=== PATIENT | female | born 1945 | race Caucasian/White ===

== ENCOUNTER 2019-01-06 08:21 | Inpatient (IN) | payer OTHER, MEDICARE, SELFPAY ==
[2018-12-31 12:37] VITALS: BMI 23.8
[2019-01-06] VITALS (13 sets, daily range): BP systolic 113–159; BP diastolic 58–102; PULSE 73–123; RESP 14–18; TEMP 36.3–36.9; O2SAT 95–100; BMI 23.8
--- NOTE | 2019-01-06 | DI.RAD.S_ITS ---
PROCEDURE: XR LUMBAR SPINE 2-3V INDICATIONS: L2-3, L3-4, L4-5, L5-S1 ANT/POST instru fusion w/bone graft TECHNIQUE: 3 views of the lumbar spine were acquired. COMPARISON: None. FINDINGS: Spot fluoroscopic intraoperative views demonstrate posterior spinal fixation with paraspinal rods pedicle screws from L2-S1. There is expected intraoperative alignment Interbody cage grafts also noted. Dictated by: José Ruelas M.D. on 01/06/2019 at 18:21 Approved by: José Ruelas M.D. on 01/06/2019 at 18:23
[2019-01-06] MEDS: LACTATED RINGERS 1,000 ML 42 ML IV ×3 (09:45→16:26)
--- NOTE | 2019-01-06 09:57 | PM.PREOP ---
Pre-operative Note Interval Note History & Physical reviewed/Exam performed by Physician: Yes Changes to H&P: No
[2019-01-06] MEDS: CEFAZOLIN 2 GM/100 ML FROZ.PIGGY IV ×3 (10:42→22:22)
--- NOTE | 2019-01-06 11:32 | SUR.OPER ---
Right lateral on padded OR table. Head on pillow, gel axillary roll, pillow to support left arm. Legs flexed, pillows between legs, gel pad under down leg and ankle. Multiple passes of 3 inch cloth tape across shoulder, hip, upper and lower legs to secure patient on OR table.
--- NOTE | 2019-01-06 11:32 | SUR.OPER ---
Prone on spine table, head in foam head support, padded chest and pelvic supports, gel pad at knees, lower legs supported by pillows; nipples, genitalia and toes free of pressure, arms secured on foam padded arm boards at <90 degrees abduction. Tape over blanket at thigh secured to table.
[2019-01-06] MEDS: VANCOMYCIN 1,000 MG VIAL 1000 MG TOP (11:46)
[2019-01-06] MEDS: SODIUM CHLORIDE 0.9% 1,000 ML, GENTAMICIN 80 MG IRR (11:47)
[2019-01-06] MEDS: BUPIVACAINE 0.5% (PF) 4 ML, MORPHINE-PF 4 MG, BUTORPHANOL 1 MG, fentaNYL 100 MCG INJ (11:48)
[2019-01-06] MEDS: THROMBIN (RECOMBINANT) 5,000 UNIT VIAL 5000 UNIT TOP (11:51)
--- NOTE | 2019-01-06 18:37 | PM.OP.1 ---
Operative Date/Time/Diagnoses Date of procedure: 01/06/19 Time of procedure: 18:37 Pre-op diagnosis: Lumbar stenosis with radiculopathy Lumbar scoliosis History of lumbar laminectomy Post-op diagnosis: same Procedure & Clinicians Procedure: L2-3, L3-4, L4-5 anterior fusion with cages L2-3, L3-4, L4-5 posterior fusion L5-S1 TLIF (post/post interbody fusion) with cage L2 through S1 screws Iliac crest bone graft L3-4 laminectomy L4-5, L5-S1 revision laminotomies Use of microscope Placement of epidural catheter Same procedure as scheduled: Yes Indications: [age] year old female with intractable pain from stenosis. They had failed conservative management and requested operative intervention. Risks and benefits of surgery were discussed and appropriate consents were obtained. Surgeon: Nakul Earl Extractions Technologist: Ariana Felix Anesthesia Type: General Operative Notes Findings: Dural tear, repaired primarily Closure Type: primary Specimen(s): none sent Prosthetic devices, grafts, tissues, transplants, or devices: NuVasive MAS reline screws NuVasive XLIF cages Globus Rise cage Applied: catheter Estimated Blood Loss (mL): 100 Blood products transfused: none Procedure in detail: Patient was brought to the operating room and intubated on the table. Time-out was performed. They were then rolled over to the lateral decubitus position with the [id number]. The table was bent and they were taped down in the correct position. X-rays were taken to confirm a true AP and lateral. Preoperative antibiotics were given. The left flank was prepped and draped in standard sterile fashion. Using fluoroscopy, a 3 cm incision was made above the iliac crest. We bluntly dissected down with Metzenbaum scissors and split the 3 abdominal muscle layers. We dissected out the retroperitoneal space and using finger guidance, brought our 1st dilator down to the psoas muscle. Using neuromonitoring and fluoroscopy, we placed it through the psoas onto the L4-5 disc space in an anterior position and gradually pulled the dilator posteriorly along the disc space. We placed our guidewire and measured our depth for the retractor. We then dilated with the next 2 dilators and then placed our retractor over the dilators. Position was confirmed with fluoroscopy and the retractor was locked down to the bar. We opened up the retractor and checked with neuro monitoring. We then placed the thierno and again checked with neuro monitoring. The retractor was opened further and the ALL retractor was placed. An annulotomy was performed. We then performed a complete diskectomy with ring curette, pituitary, box osteotome. A De Jesus was advanced across the disc space under fluoroscopy to release the lateral annulus on the opposite side. We then used sequentially larger trials and confirmed under fluoroscopy. An XLIF cage was packed with Osteocel bone graft and impacted into the L4-5 disc space with fluoroscopy for the anterior fusion at this level. The wound was irrigated. The retractor was closed down. The thierno was removed. We carefully removed the retractor with direct visualization to make sure there was no neurovascular or abdominal injury. X-rays were taken. We then went up and repeated the same procedure at L3-4 with dilation, retractor, diskectomy, lateral release, trialing, and placement of a cage packed with bone graft for the anterior fusion at L3-4. The retractor was carefully removed and x-rays were taken. We then went up and repeated the same procedure at L2-3 with dilation, retractor, diskectomy, lateral release, trialing, and placement of the cage packed with bone graft for the anterior fusion at L2-3. The retractor was carefully removed. Final x-rays were taken. She did not have significant rotation above this at L1-2 and we were above the apex of her curve and we did not need to go up to the upper level. The muscle fascia was closed, superficial tissue was closed. The skin was closed. Sterile dressing was placed. The patient was then rolled over on the well-padded prone position on the Willy table. Using fluoroscopy for localization, a 15 cm incision was made to the left of the midline. we used the Bovie to split the fascia. We then percutaneously placed Jamshidi needles down the left pedicles of L2 through S1 using fluoroscopy and neural monitoring. These were switched out to guidewires. We then tapped and placed the screw shanks at each level with retractor blades at L5-S1. The gutter was exposed and the TP and ala at L5 and S1 were decorticated with the bur. We brought in the microscope. We exposed medially with care through her revision laminotomy site. we used a curette to trace the edge of the bone and free it up from the medial scar tissue. we performed a revision hemilaminotomy on the left at L5-S1. We performed a complete facetectomy. In the end, the neural foramen was opened and the canal was decompressed. This was separate and distinct from the approach for a TLIF as this was a revision decompression level and having to deal with large amounts of scar slowed everything down and took extensively more detail and work and time. We then carefully retracted the dura medially. We cleared through the scar tissue and elevated up until the disc was exposed. a scalpel was used to perform a diskectomy. We then used pituitaries, curettes, paddles, Junito to perform a complete diskectomy at L5-S1. We packed the disc space with Osteocel bone graft and then placed a globus Rise cage. This was opened up under fluoroscopic guidance. More bone graft was placed in the disc space around this. This completed the posterior interbody section of the TLIF at L5-S1. We then removed the retractor blade off S1 and brought it onto the L4 screw. we cleared out the gutter and exposed the L4 transverse process and decorticated. We cleared out medially and exposed her previous laminectomy site and expose the facet. A revision laminotomy at L4-5 was also performed at this level. as we are clearing away through the scar tissue, she had a dural tear. There was a large 4 x 6 mm section of calcification and adherent to the dura and as this was peeled back it tore. We were able to remove the remainder of the calcified segment. The durotomy was exposed. We then over sewed it with a running locking stitch and had a watertight seal. We then completed the decompression including facetectomy to open up the neural foramen and everything was opened. Again, as this was a revision laminotomy, this was separate and distinct compared to the interbody fusion approach. This was a much more complicated revision laminotomy including repair of the dural tear which took extensively more time at this level. We then switched the retractor up to the next level L3 and exposed the gutter and decorticated the transverse process. We also exposed the transverse process and decorticated at L2. We exposed medially. we used a bur and Kerrison rongeurs to perform a laminectomy at L3-4. We carefully reach across past the midline to the other side. there was a large hypertrophic facet on the opposite right hand side that required extensive decompression and was finally removed until the canal was opened. The neural foramen were also opened. We then placed the Tulip heads on each of the screws. A lg was measured and locked down with set screws. The wound was copiously irrigated. A small stab incision was made over the PSIS and a Jamshidi needle was placed into the iliac crest and several mL of bone marrow was aspirated. This was mixed with our locally harvested bone graft as well as the remaining Osteocel and placed in the posterolateral gutter for the posterior fusion at L2-3, L3-4, L4-5 as well as the posterior portion of the fusion for the TLIF at L5S1. An epidural catheter was primed with 4mL of 0.5% bupivacaine, 100 mcg fentanyl, 4 mg Duramorph, 1 mg Stadol. The dura was depressed under the cephalad lamina with a ball probe and the epidural catheter was gently advanced 6 cm cephalad. The fascia was then closed. The epidural was then injected without resistance. The catheter was pulled and we closed more over the fascia. We then went over to the right-hand side. Again using fluoroscopy a 15 cm longitudinal incision was made. We percutaneously placed Jamshidi needles down the right pedicles of L2 through S1 with fluoroscopy and neural monitoring. These were switched to guidewires and then tapped and the screws were placed. We placed our lg and the set screws were locked down. The wound was irrigated. The fascia was closed Vancomycin powder was placed in the wounds. The superficial and skin were closed. Sterile dressing was placed. The patient was then rolled over, extubated, brought to the recovery room with no complications. Complications: none Condition: stable Disposition: PACU Plan for aftercare: Inpatient. Overnight bedrest for the dural tear and then up in the morning.
[2019-01-06] MEDS: LACTATED RINGERS 1,000 ML 125 ML IV (19:51)
[2019-01-06] MEDS: ONDANSETRON 4 MG/2 ML INJ IV (21:04)
[2019-01-06] MEDS: HYDROMORPHONE 1 MG INJ 0.2 MG IV (21:07)
[2019-01-06] MEDS: HYDROMORPHONE 1 MG INJ 0.5 MG IV ×3 (21:22→23:57)
[2019-01-06] MEDS: diazePAM 5 MG TABLET PO (22:04)
[2019-01-06] MEDS: hydrOXYzine 50 MG/ML INJ 25 MG IM (22:38)
--- NOTE | 2019-01-06 23:22 | PC.NURSE ---
admit note: pt a&ox3. 100%2L. lower back dressing and l.hip dressing intact.pt woke up and felt nauseous. administered zofran then pt vomited. VTO for one time dose IM vistaril and change 0.5mg IV dilaudid to q1hr. oriented pt to the room. kept patients HOB flat. call light in reach. bed alarm active.
[2019-01-07] VITALS (7 sets, daily range): BP systolic 122–156; BP diastolic 64–84; PULSE 91–105; RESP 16–20; TEMP 36.5–37.5; O2SAT 95–99
--- NOTE | 2019-01-07 01:01 | PC.NURSE ---
Addendum entered by Yareli Gamboa R.N. 01/07/19 03:15: Pt continues to be nauseated and vomits, pt also requests to be turned frequently. Assessed surgical site and outlined noah blood saturation on posterior dressing, appears saturated but does not leak with compression. Left flank aspiration dressing is still serosang. Pt reports to this RN that she has a history of post-op nausea that is persistent in nature and that after foot surgery in September of this year was nauseous for a week post op. Pt also continues to have pain despite Q1 0.5mg IV Dilaudid, unable to transition her to PO Dilaudid d/t nausea and vomiting. Pt does appear to have moments of rest with eyes closed but continues to report feeling continually nauseous and 7-8/10 pain. Addendum entered by Yareli Gamboa R.N. 01/07/19 01:37: Pt ordered to stay flat til dayshift, assisting pt to roll from right side to left side as pt continues to have nausea and intermittent but persistent vomiting. Pt c/o 8/10 pain, medicating per MAR in attempt to achieve relief. Pt is pleasant but anxious about the vomiting stating it always feels like it's right there, encouraged pt to deep breathe and focus thoughts away from nausea, pt reports that she is trying. Both dressings have serosang drainage on them. Pt has abrasions to both cheeks, right larger than left, evening nurse reports that they are from surgery, both SOBEIDA. Pt on 1L O2 by NC and 100% sat via continuous pulse ox. Bed alarm is on for safety, call light in reach, pt acknowledges all teaching and the need to lay flat. Original Note: Shift Note: Received pt from evening shift. Pt actively vomiting and dry heaving. Called arturo Juárez ordered for Decadron 4mg. Will medicate per MAR.
[2019-01-07] MEDS: HYDROMORPHONE 0.5 MG INJ IV ×4 (01:08→04:07)
[2019-01-07] MEDS: DEXAMETHASONE 4 MG/ML VIAL IV ×4 (01:15→19:42)
[2019-01-07] MEDS: ONDANSETRON 4 MG/2 ML INJ IV ×2 (03:06→09:32)
[2019-01-07] MEDS: HYDROMORPHONE 2 MG TABLET PO ×6 (04:07→23:51)
[2019-01-07] MEDS: LACTATED RINGERS 1,000 ML 125 ML IV ×2 (04:38→13:09)
[2019-01-07] MEDS: LEVOTHYROXINE 50 MCG TABLET PO (05:48)
[2019-01-07] MEDS: LIOTHYRONINE 5 MCG TABLET PO (05:48)
[2019-01-07] MEDS: CEFAZOLIN 2 GM/100 ML FROZ.PIGGY IV (05:48)
--- NOTE | 2019-01-07 07:50 | PM.PNPO.1 ---
Subjective Date Patient Seen: 01/07/19 Time Patient Seen: 07:50 Interval history: Pain is 7 to 8/10. All in the back. Leg feels good. She has been very nauseated. No headaches or photophobia. Exam Vital Signs (past 8 hours): - 01/07/19 05:10 Temperature 97.7 F Pulse Rate 102 H Respiratory Rate 16 Blood Pressure 132/81 Pulse Oximetry 97 Oxygen Delivery Method Nasal Cannula Oxygen Flow Rate 0 Const Orientation: alert and oriented x3 Back/Spine/Pelvis Other: Moderate drainage. 5/5 motor both lower extremities. I set her up in bed and she had no headaches, photophobia, or change in nausea. Assessment & Plan Post-op Postoperative Procedures Operation Date: 01/06/19 10:15 Actual Procedures Side Surgeon p L3-4 laminectomy, L4-5, L5-S1 redo laminectomies, L2-S1 anterior/ posterior instrumented fusion with bone graft Nakul Earl MD Stable after extensive revision surgery and 4 level fusion. Plan for mobilization with therapy today. dural repair is stable. no more restrictions on bedrest and she can get up and out of bed as tolerated. Quality VTE Deep Vein Thrombosis/Pulmonary Embolism Present on Admission: No
[2019-01-07 08:26] LABS: Hematocrit 32.4 % (36-46); Hemoglobin 10.9 g/dL (12.0-16.0)
[2019-01-07] MEDS: LORazepam 2 MG/ML SYRINGE 0.5 MG IV ×2 (08:30→16:27)
[2019-01-07 08:33] LABS: BUN Creatinine Ratio 26.7 (6-22); Blood Urea Nitrogen 16 mg/dL (7-17); Calcium 8.9 mg/dL (8.4-10.2); Carbon Dioxide 29 mmol/L (22-32); Chloride 99 mmol/L (98-107); Estimated Glomerular Filt Rate > 60.0 mL/min (>60); Glucose 165 mg/dL (80-110); HEMOLYSIS < 15 (0-50); Potassium 3.7 mmol/L (3.4-5.1); Sodium 138 mmol/L (137-145)
[2019-01-07] MEDS: ACETAMINOPHEN 325 MG TABLET 650 MG PO ×3 (09:38→23:57)
--- NOTE | 2019-01-07 09:59 | PC.SBAR ---
Addendum entered by Nathaniel Acevedo R.N. 01/07/19 15:32: patient reports feels better this afternoon. headache down to 4/10, back pain 7/10. drsg changed per orders. no active drainage, incisions well approximated with sutures in place. applied coversite x2 to lumbar incisions and coversite x1 to left posterior iliac crest. tolerated well. no erythema. Addendum entered by Nathaniel Acevedo R.N. 01/07/19 11:53: PATIENT REPORTS ABLE TO NAP, BUT HEADACHE AWOKE HER AT 1140 WHICH SHE RATES AT 8/10. STATES THE BACK PAIN IS MINIMAL AT THE MOMENT AND THE NAUSEA IS SOMEWHAT IMPROVED BUT NOT RESOLVED. DILAUDID 2MG PO GIVEN PER PATIENT REQUEST. FAXED MSG TO [facility], TO REPORT DAWSON AND ASK IF PATIENT COULD CONTINUE TO LAY FLAT THROUGHOUT THE DAY UNTIL DAWSON RESOLVES. AWAITING RESPONSE. Original Note: SITUATION: [PATIENT C/O NAUSEA. C/O HEADACHE 6/10 AND LUMBAR PAIN 8/10. DENIES PHOTOPHOBIA. SAYS THE NAUSEA IS WORSE OF ALL. STATES IF SHE TAKES MORE THAN 2MG PO DILAUDID SHE WILL GET HEADACHES. STATES DIDN'T SLEEP AT ALL.] BACKGROUND: [PATIENT HAD DURAL TEAR DURING SURGERY. ASSESSMENT: [DRSG W/ LG AMT SHADOW DRAINAGE, DRY AND INTACT. SAT 93% ON RA. APPEARS FATIGUED.] RECOMMENDATION: [GIVEN ATIVAN ORDERED FOR THE NAUSEA. TYLENOL FOR THE HEADACHE. ZOFRAN FOR PERSISTANT NAUSEA. IVF INFUSING. HOLD AM PHYSICAL THERAPY PER PATIENT'S REQUEST, ALLOW FOR PERIODS OF UNINTERUPTED SLEEP. TITRATE DILAUDID FOR PAIN CONTROL AND TO AVOID HEADACHE TOLERATED. ] RESPONSE: [PATIENT STATED THE ATIVAN HELPED AND SHE WAS ABLE TO SLEEP, BUT WAS AWOKEN BY THERAPY W/ IMMEDIATE RETURN OF NAUSEA. TALKING MAKES THE NAUSEA WORSE. SHE WOULD LIKE TO SLEEP UNTIL 1100 AND WOULD LIKE DILAUDID AT THAT TIME. SHE WILL CALL IF SHE WANTS DILAUDID PRIOR TO THAT.]
--- NOTE | 2019-01-07 10:51 | PT.IPTN ---
Current Diagnoses Other forms of scoliosis, lumbar region (01/06/19) Spinal stenosis, lumbar region with neurogenic claudication (01/06/19) Other specified postprocedural states (01/06/19) Surgery Performed Operation Date: 01/06/19 10:15 Actual Procedures p L3-4 laminectomy, L4-5, L5-S1 redo laminectomies, L2-S1 anterior/ posterior instrumented fusion with bone graft - Nakul Earl MD Physical Therapy Treatment Note M3 PT-IP Subjective Start: 01/07/19 10:49 Freq: NEEDED Status: Active Protocol: Document 01/07/19 10:50 AB (Rec: 01/07/19 10:51 AB [id number]) Subjective Physical Therapy Visit Type Notes checked on pt this morning and stated that she is nauseated and did not sleep at all last night. pt refused PT eval. informed pt that PT will check back. nurse informed PT that pt wants to hold off on PT eval this morning. will f/u.
[2019-01-07] MEDS: hydroCHLOROthiazide 25 MG TABLET PO (11:40)
[2019-01-07] MEDS: LOSARTAN 50 MG TABLET 100 MG PO (11:40)
[2019-01-07] MEDS: DOCUSATE 100 MG CAPSULE PO ×2 (11:40→20:55)
[2019-01-07] MEDS: valACYclovir 500 MG TABLET PO ×2 (11:41→20:55)
--- NOTE | 2019-01-07 12:04 | PC.NURSE ---
SPOKE W/ DR. SAHU. DESCRIBED HEADACHE AND NAUSEA TO HIM. HE STATES THAT HE DOESN'T THINK IT'S FROM THE DURAL TEAR, BECAUSE IF IT WAS, THE HEADACHE WOULD GO AWAY WITH LAYING FLAT. PER SURGEON, OKAY TO MOBILIZE WITH PHYSICAL THERAPY. CONTINUE DECADRON FOR HEADACHE Q6HR PRN BUT STOP ORDER IN 24HRS.
--- NOTE | 2019-01-07 14:30 | PT.IIE ---
Current Diagnoses Other forms of scoliosis, lumbar region (01/06/19) Spinal stenosis, lumbar region with neurogenic claudication (01/06/19) Other specified postprocedural states (01/06/19) Surgery Performed Operation Date: 01/06/19 10:15 Actual Procedures p L3-4 laminectomy, L4-5, L5-S1 redo laminectomies, L2-S1 anterior/ posterior instrumented fusion with bone graft - Nakul Earl MD Surgical History (Last Updated 12/31/18 @ 13:44 by Bethanie Connors RN) History of Og fundoplication (Acute ~2007) History of ankle surgery (Acute) History of bilateral total hip arthroplasty (Acute) History of bilateral tubal ligation (Acute) History of bunionectomy of both great toes (Acute) History of mandibular surgery (Acute) History of surgery on arm (Acute) Hx of appendectomy (Acute) Hx of arthroscopy of right knee (Acute) Hx of bilateral mastectomy (Acute ~2013) Hx of bladder repair surgery (Acute) Hx of cholecystectomy (Acute) Hx of foot surgery (Acute) Hx of foot surgery (Acute ~09/2018) Hx of laminectomy (Acute ~2008) Hx of sinus surgery (Acute) Hx of tonsillectomy (Acute ~2005) S/P LASIK surgery of both eyes (Acute) Status post bilateral cataract extraction (Acute) Status post correction of deviated nasal septum (Acute) Medical History (Last Updated 12/31/18 @ 13:44 by Bethanie Connors RN) Breast cancer (Acute) Constipation (Acute) GERD (gastroesophageal reflux disease) (Acute) H/O: hysterectomy (Acute) HTN (hypertension) (Acute) Hiatal hernia (Acute) Hypothyroidism (Acute) Kidney stones (Acute) Numbness and tingling of both feet (Acute) Numbness and tingling of both legs (Acute) Osteoarthritis (Acute) Pneumonia (Acute) Rib deformity (Acute) Sciatica (Acute) TMJ (temporomandibular joint disorder) (Acute) Physical Therapy Inpatient Evaluation/Re-Eval M1 PT/OT-IP Prior Functional Status Start: 01/07/19 10:49 Freq: NEEDED Status: Active Protocol: Document 01/07/19 14:30 AB (Rec: 01/07/19 16:21 AB [id number]) Medical Review Prior Functional Status Medical History Reviewed Yes Communication able to make needs known Mobility and Gait pt stated that she is independent with all mobilities and ambulation without AD Social History Household Members spouse Living Arrangements House Number of Floors (Floors) Two Floors Number of Stairs To Enter/Railing? 2 steps without rails 13 steps with bilateral rails to 2nd level: pt plans to sleep on main level of the house where her recliner is Home Environment Standard Height Toilet Walk in Shower Home Equipment Four Wheel Walker Straight Cane Hand Held Shower Grab Bars In Shower Employment Status Retired Additional Social History Comment pt plans to sleep on her power recliner pt has a standard walker M2 PT-IP Current Condition Start: 01/07/19 10:49 Freq: NEEDED Status: Active Protocol: Document 01/07/19 14:30 AB (Rec: 01/07/19 16:21 AB [id number]) Physical Therapy Current Condition Current Condition Evaluation Date 01/07/19 Treatment Diagnosis s/p L2-5 ant fusion with cage/ post fusion, L3-4 L4S1 lami, diff in walking Onset Date 01/06/19 Precautions Lumbar Precautions Log Roll No Twisting Limit Bending Lifting Restriction of 10 lbs Gait Belt above Incisional Area M3 PT-IP Subjective Start: 01/07/19 10:49 Freq: NEEDED Status: Active Protocol: Document 01/07/19 14:30 AB (Rec: 01/07/19 16:21 AB [id number]) Subjective Physical Therapy Visit Type Type Initial Evaluation Visit Start Time 14:30 Visit Stop Time 15:30 Total Visit Minutes 60 Number of OFFICE INSPECTOR Visits 0 Physical Therapy Visit Comments Patient Comments pt agrees to do PT Therapy Pain Assessment Pain When Pain Assessed At Rest Pain Present Pain Present Pain Reported Location Head Intensity 4 Scale Used Numeric (1 - 10) Pain Management Techniques Timing of Activity with Medications Lower Back Intensity 7 Scale Used Numeric (1 - 10) Pain Management Techniques Apply Cold Timing of Activity with Medications M4 PT-IP Mobility and Gait Start: 01/07/19 10:49 Freq: NEEDED Status: Active Protocol: Document 01/07/19 14:30 AB (Rec: 01/07/19 16:21 AB [id number]) PT-Bed Mobility Assessment Rolling Type of Rolling Log Rolling Level of Assist 1 Person Assistance Supine to Sit Supine to Sit Maximum Assistance Bedrails Scooting Scooting to Edge of Bed Dependent PT-Transfer Assessment Sit to and From Stand Sit to and from Stand Moderate Assistance Maximum Assistance 1 Person Assistance Use of Upper Extremities Equipment Transfer Assistive Device Gait Belt Front Wheeled Walker Orthotic/Prosthetic Devices or Brace: No Transfers Transfer Destination Chair Transfer Technique Stand Step Pivot Transfer Ability Level of Assist Moderate Assistance 2 Person Assistance Use of Upper Extremities Gait Assessment Gait Gait Assistance Required: Moderate Assistance Distance (Feet) 7 Able to Maintain Weight Bearing Status Yes During Gait Assistive Devices Assistive Device Gait Belt Front Wheeled Walker Orthotic/Prosthetic Devices or Brace: No Gait Deviations General Gait Pattern Decreased Stride Length Decreased Feet Clearance Step-to Gait Factors Limiting Gait Function Factors Limiting Gait Function Decreased Activity Tolerance Decreased Strength Limited Range of Motion Pain Poor Balance Poor Safety Awareness PT-Balance Assessment Sitting Balance and Reactions Static Sitting Balance Ability Good Dynamic Sitting Balance Ability Fair Standing Balance and Reactions Static Standing Balance Ability Poor Dynamic Standing Balance Ability Poor Device Used FWW M5 PT-IP Objective Assessments Start: 01/07/19 10:49 Freq: NEEDED Status: Active Protocol: Document 01/07/19 14:30 AB (Rec: 01/07/19 16:21 AB [id number]) Orientation Orientation/Cognition Level of Alertness Alert Orientation Name Place Situation Gross Range of Motion Lower Extremity ROM Assessment Within Functional Limits Strength Lower Extremity Strength Assessment Bilaterally Impaired Comments Strength Comments RLE: 3+/5 LLE: 3-/5 Coordination Assessment Gross Coordination Gross Coordination WNL Muscle Tone Muscle Tone WNL Yes M6 PT-IP Treatment Start: 01/07/19 10:49 Freq: NEEDED Status: Active Protocol: Document 01/07/19 14:30 AB (Rec: 01/07/19 16:21 AB [id number]) Physical Therapy Treatment Education Education Provided Precautions Weight Bearing Status Post-Op Packet Safety M7 PT-IP Assessment and Plan Start: 01/07/19 10:49 Freq: NEEDED Status: Active Protocol: Document 01/07/19 14:30 AB (Rec: 01/07/19 16:21 AB [id number]) PT Summary Assessment and Plan Potential Rehabilitation Potential Fair Status of Condition at Evaluation Evolving Summary Impairments Pain ROM Strength Balance Coordination Sensation Tone Cognition Bed Mobility Transfers Gait Activity Tolerance Assessment Summary pt requiring mod A x 2 for transfers and with decrease activity tolerance at this time. d/c plan depending on progress but at this time will require SNF rehab to improve mobility and independence. Goals Bed Mobility Goal Standby Assistance Transfer Goal Standby Assistance Front Wheeled Walker Gait Goal Standby Assistance Front Wheel Walker Gait Distance 100 Other Goals up/down 2 steps without rails CGA Days to Meet Goals 5 Frequency of Treatment Frequency Of Treatment Twice a Day Treatment Plan Physical Therapy Treatment Plan Bed Mobility Training Transfer Training Gait Training Therapeutic Exercise Balance Retraining Post Op Education Discharge Planning Hot or Cold Pack Neuromuscular Re-ed Coordination Retraining Manual Therapy Recommendations To Nursing Amount of Assist Needed 2 Person Assist Discharge Recommendations PT Discharge Recommendations SNF Rehab Equipment Needed for Home Before FWW Discharge
--- NOTE | 2019-01-07 18:51 | OT.IP.EVAL ---
Current Diagnoses Other forms of scoliosis, lumbar region (01/06/19) Spinal stenosis, lumbar region with neurogenic claudication (01/06/19) Other specified postprocedural states (01/06/19) Surgery Performed Operation Date: 01/06/19 10:15 Actual Procedures p L3-4 laminectomy, L4-5, L5-S1 redo laminectomies, L2-S1 anterior/ posterior instrumented fusion with bone graft - Nakul Earl MD Past Medical History (Last Updated 12/31/18 @ 13:44 by Bethanie Connors RN) Breast cancer (Acute) Constipation (Acute) GERD (gastroesophageal reflux disease) (Acute) H/O: hysterectomy (Acute) HTN (hypertension) (Acute) Hiatal hernia (Acute) Hypothyroidism (Acute) Kidney stones (Acute) Numbness and tingling of both feet (Acute) Numbness and tingling of both legs (Acute) Osteoarthritis (Acute) Pneumonia (Acute) Rib deformity (Acute) Sciatica (Acute) TMJ (temporomandibular joint disorder) (Acute) Surgical History (Last Updated 12/31/18 @ 13:44 by Bethanie Connors RN) History of Og fundoplication (Acute ~2007) History of ankle surgery (Acute) History of bilateral total hip arthroplasty (Acute) History of bilateral tubal ligation (Acute) History of bunionectomy of both great toes (Acute) History of mandibular surgery (Acute) History of surgery on arm (Acute) Hx of appendectomy (Acute) Hx of arthroscopy of right knee (Acute) Hx of bilateral mastectomy (Acute ~2013) Hx of bladder repair surgery (Acute) Hx of cholecystectomy (Acute) Hx of foot surgery (Acute) Hx of foot surgery (Acute ~09/2018) Hx of laminectomy (Acute ~2008) Hx of sinus surgery (Acute) Hx of tonsillectomy (Acute ~2005) S/P LASIK surgery of both eyes (Acute) Status post bilateral cataract extraction (Acute) Status post correction of deviated nasal septum (Acute) Occupational Therapy Inpatient Evaluation/Re-Eval M1 PT/OT-IP Prior Functional Status Start: 01/07/19 18:31 Freq: NEEDED Status: Active Protocol: Document 01/07/19 14:45 [facility] (Rec: 01/07/19 18:51 [facility] [id number]) Medical Review Prior Functional Status Medical History Reviewed Yes Communication able to make needs known Mobility and Gait pt stated that she is independent with all mobilities and ambulation without AD Activities of Daily Living and IADL's Pt states able to do all ADl and IADl's with increased time . Social History Household Members spouse Living Arrangements House Number of Floors (Floors) Two Floors Number of Stairs To Enter/Railing? 2 steps without rails 13 steps with bilateral rails to 2nd level: pt plans to sleep on main level of the house where her recliner is Home Environment Standard Height Toilet Walk in Shower Home Equipment Four Wheel Walker Straight Cane Hand Held Shower Grab Bars In Shower Employment Status Retired Additional Social History Comment pt plans to sleep on her power recliner pt has a standard walker Pt's shower is upstairs and has a bidet upstairs as well. M2 OT-IP Current Condition Start: 01/07/19 18:31 Freq: Status: Active Protocol: Document 01/07/19 14:45 [facility] (Rec: 01/07/19 18:51 [facility] [id number]) Occupational Therapy Current Condition Current Condition Evaluation Date 01/07/19 Treatment Diagnosis Lumbar stenosis Diagnosis Onset Date 01/06/19 Post Operative Precautions Lumbar Precautions Log Roll No Twisting Limit Bending Lifting Restriction of 10 lbs Gait Belt above Incisional Area Weight Bearing Status Weight Bearing Status Weight Bear as Tolerated M3 OT- IP Subjective and Pain Start: 01/07/19 18:31 Freq: Status: Active Protocol: Document 01/07/19 14:45 [facility] (Rec: 01/07/19 18:51 [facility] [id number]) OT- Subjective Occupational Therapy Visit Type Type Initial Evaluation Visit Start Time 14:45 Visit Stop Time 16:10 Total Visit Minutes 85 Occupational Therapy Visit Comments Patient Comments Pt willing to get up for OT and PT eval. Patient/Caregiver Goals Pt wanting to go home. OT Pain Assessment Pain When Pain Assessed During Mobility Pain Present Pain Present Pain Reported Location Head Intensity 8 Scale Used Numeric (1 - 10) M4 OT- IP ADL's Start: 01/07/19 18:31 Freq: Status: Active Protocol: Document 01/07/19 14:45 [facility] (Rec: 01/07/19 18:51 [facility] [id number]) OT ADL-Grooming General Evaluation Grooming Ability Standby Assistance Areas Needing Assistance Retrieving/Set-up of Grooming Items Comments OT Grooming Comments Pt not able to stand at sink at this time and therefore did all grooming needs while sitting from recliner. OT ADL-Oral Care General Eval Oral Care Ability Independent OT ADL-Dressing General Eval Lower Body Dressing Ability Maximum Assistance Comments OT Dressing Comments Pt states wears socks at home, recommended to wear shoes/ slipper to prevent from slipping. Pt has vamper, shoe horn, and may benefit form socks aid. OT ADL-Toileting General Evaluation Toileting Ability Total Assistance Areas Needing Assistance Empty Catheter or Colostomy Comments OT Toileting Comments use of catheter at this time M5 OT- IP IADL's Start: 01/07/19 18:31 Freq: Status: Active Protocol: Document 01/07/19 14:45 [facility] (Rec: 01/07/19 18:51 [facility] [id number]) OT-Instrumental Activities of Daily Living Meal Preparation Meal Preparation Comments to assist. Brake Press Operator Brake Press Operator Comments to assist. M6 OT- IP Functional Cognition Start: 01/07/19 18:31 Freq: Status: Active Protocol: Document 01/07/19 14:45 [facility] (Rec: 01/07/19 18:51 [facility] [id number]) Cognitive Factors Limiting Selfcare Function Cognitive Ability Level of Alertness Alert Patient Orientation Name Place Situation Attention Span Ability Capable of Focused Attention Capable of Sustained Attention Ability to Follow Commands Able to Follow One Step Commands Memory Description No Deficits Noted Safety Awareness Underestimates Need for Assistance Cognitive Comments Cognitive Assessment Comments Pt needing lots of encouragement and cues for safety initially. Pt able to recall 3/3/ back precautions. OT- Vision and Hearing OT- Hearing Assessment OT- Hearing Assessment WFL M7 OT- IP Mobility and Balance Start: 01/07/19 18:31 Freq: Status: Active Protocol: Document 01/07/19 14:45 [facility] (Rec: 01/07/19 18:51 [facility] [id number]) OT- Bed Mobility Assessment Rolling Type of Rolling Roll to Right Supine to Sit Supine to Sit Assist Maximum Assistance 1 Person Assistance Sit to Supine Sit to Supine Assist Maximum Assistance 1 Person Assistance Scooting Scooting to Edge of Bed Minimal Assistance Maximum Assistance 1 Person Assistance OT-Transfer Assessment Sit to and From Stand Sit to and from Stand Moderate Assistance Maximum Assistance 1 Person Assistance Transfers Transfer Ability Moderate Assistance 1 Person Assistance Technique Transfer Destination Bed Chair Transfer Technique Stand Step Pivot Devices Transfer Assistive Devices Gait Belt Front Wheeled Walker Comments Mobility Comments Pt MAX A x 1 for bed mobility needs, assist to help get trunk upright mainly. Pt scooting in bed MAX A X 1 and while sitting in recliner and able to use arms on armrests ANNE MARIE x1 . Sit to stand MODA to MAX Ax1. Pt able to use FWW to transfer initially needing assist for balance and to help move FWW MODA X 2 and at the end of the session MODA X 1 with FWW. OT- Balance Assessment Sitting Balance and Reactions Static Sitting Balance Ability Fair Dynamic Sitting Balance Ability Poor Standing Balance and Reactions Static Standing Balance Ability Poor M8 OT- IP Objective Assessments Start: 01/07/19 18:31 Freq: Status: Active Protocol: Document 01/07/19 14:45 [facility] (Rec: 01/07/19 18:51 [facility] [id number]) OT Gross Range of Motion Upper Extremity Range of Motion Assessment Within Functional Limits OT Strength Upper Extremity Strength Assessment Within Functional Limits M9 OT- IP Assessment and Plan Start: 01/07/19 18:31 Freq: Status: Active Protocol: Document 01/07/19 14:45 [facility] (Rec: 01/07/19 18:51 [facility] [id number]) OT Summary Assessment and Plan Potential Rehabilitation Potential Good Analytic Complexity at Evaluation Low Summary OT Impairments Pain Balance Functional Mobility Grooming Dressing Toileting Bathing Toilet Transfers Shower Transfers Progress Towards Goals Progressing Toward Goals Slow Progress due to Pain Assessment Summary Pt LOW complexity and main barriers are steps and pain and now needing from 1-2 person assist for bed mobility and ADl needs. Pt's works most of the day and pt needing to be MOD I, therefore at this time pt would benefit from short skilled rehab versus home with 24/ assist. Goals Grooming Goal Standby Assistance Dressing Goal Standby Assistance Toileting Goal Independent Bathing Goal Minimal Assistance Toilet Transfer Goal Independent Shower Transfer Goal Minimal Assistance Patient/Caregiver Education Goal Caregiver Independent Assisting Patient Days to Meet Goals 7 Frequency of Treatment Frequency Of Treatment Once a Day Treatment Plan OT Treatment Plan ADL Training Functional Cognition Training Functional Mobility Patient/Family Education Discharge Planning Other Treatment Recommendations and Next standing at sink , walk to the Treatment Focus bathroom with FWW, caregiver training Discharge Recommendations OT Discharge Recommendations SNF Rehab Other Discharge Recommendations Pending progress and caregiver training home with assist versus skilled rehab. Home Equipment Needs BSC, FWW, shower chair
[2019-01-07] MEDS: clonazePAM 0.5 MG TABLET 1 MG PO (20:55)
[2019-01-07] MEDS: SENNOSIDES 8.6 MG TABLET 17.2 MG PO (20:55)
[2019-01-08] MEDS: HYDROMORPHONE 2 MG TABLET PO ×6 (03:04→16:51)
[2019-01-08] MEDS: DEXAMETHASONE 4 MG/ML VIAL IV (03:04)
[2019-01-08 04:35] VITALS: BP 113/62; PULSE 91; RESP 18; TEMP 37.1; O2SAT 97
[2019-01-08] MEDS: LEVOTHYROXINE 50 MCG TABLET PO (05:53)
[2019-01-08] MEDS: LIOTHYRONINE 5 MCG TABLET PO (05:53)
[2019-01-08 08:00] VITALS: BP 126/72; PULSE 84; RESP 18; TEMP 36.8; O2SAT 96
--- NOTE | 2019-01-08 08:23 | PM.PNPO.1 ---
Subjective Date Patient Seen: 01/08/19 Time Patient Seen: 08:23 Interval history: She is doing much better today. No more nausea. Pain is about 6-7 all across the back. Her legs feel very good. No more headache. Exam Vital Signs (past 8 hours): - 01/08/19 04:35 Temperature 98.8 F Pulse Rate 91 H Respiratory Rate 18 Blood Pressure 113/62 Pulse Oximetry 97 Oxygen Delivery Method Nasal Cannula Oxygen Flow Rate 0 Const Orientation: alert and oriented x3 Back/Spine/Pelvis Other: CDI. 5/5 motor both lower extremities Objective Labs Result Diagrams: 01/07/19 07:58 01/07/19 07:58 Labs: Laboratory Results - last 24 hr 01/07/19 01/07/19 07:58 07:58 Hgb 10.9 L Hct 32.4 L Sodium 138 Potassium 3.7 Chloride 99 Carbon Dioxide 29 BUN 16 Creatinine 0.60 Estimated GFR > 60.0 BUN/Creatinine Ratio 26.7 H Glucose 165 H Calcium 8.9 Assessment & Plan Post-op Postoperative Procedures Operation Date: 01/06/19 10:15 Actual Procedures Side Surgeon p L3-4 laminectomy, L4-5, L5-S1 redo laminectomies, L2-S1 anterior/ posterior instrumented fusion with bone graft Nakul Earl MD She is doing much better today now that the nausea and headaches have resolved. Continue to mobilize with physical therapy. I anticipate her being here probably 2 more days before discharge. Quality VTE Deep Vein Thrombosis/Pulmonary Embolism Present on Admission: No
[2019-01-08] MEDS: DOCUSATE 100 MG CAPSULE PO ×2 (09:01→21:25)
[2019-01-08] MEDS: valACYclovir 500 MG TABLET PO ×2 (09:01→21:25)
[2019-01-08] MEDS: ACETAMINOPHEN 325 MG TABLET 650 MG PO ×3 (09:01→21:27)
--- NOTE | 2019-01-08 09:40 | PT.IPTN ---
Current Diagnoses Other forms of scoliosis, lumbar region (01/06/19) Spinal stenosis, lumbar region with neurogenic claudication (01/06/19) Other specified postprocedural states (01/06/19) Surgery Performed Operation Date: 01/06/19 10:15 Actual Procedures p L3-4 laminectomy, L4-5, L5-S1 redo laminectomies, L2-S1 anterior/ posterior instrumented fusion with bone graft - Nakul Earl MD Physical Therapy Treatment Note M2 PT-IP Current Condition Start: 01/07/19 10:49 Freq: NEEDED Status: Active Protocol: Document 01/07/19 14:30 AB (Rec: 01/07/19 16:21 AB [id number]) Physical Therapy Current Condition Current Condition Evaluation Date 01/07/19 Treatment Diagnosis s/p L2-5 ant fusion with cage/ post fusion, L3-4 L4S1 lami, diff in walking Onset Date 01/06/19 Precautions Lumbar Precautions Log Roll No Twisting Limit Bending Lifting Restriction of 10 lbs Gait Belt above Incisional Area M3 PT-IP Subjective Start: 01/07/19 10:49 Freq: NEEDED Status: Active Protocol: Document 01/08/19 09:40 AB (Rec: 01/08/19 12:38 AB [id number]) Subjective Physical Therapy Visit Type Type Treatment Note Visit Start Time 09:40 Visit Stop Time 10:07 Total Visit Minutes 27 Number of HULL SORTER Visits 0 Physical Therapy Visit Comments Patient Comments pt agreeable to do PT Therapy Pain Assessment Pain When Pain Assessed At Rest Pain Present Pain Present Pain Reported Location Lower Back Intensity 7 Scale Used Numeric (1 - 10) Pain Management Techniques Re-positioning Timing of Activity with Medications M4 PT-IP Mobility and Gait Start: 01/07/19 10:49 Freq: NEEDED Status: Active Protocol: Document 01/08/19 09:40 AB (Rec: 01/08/19 12:38 AB [id number]) PT-Bed Mobility Assessment Rolling Type of Rolling Log Rolling Level of Assist Standby Assistance Supine to Sit Supine to Sit Moderate Assistance Sit to Supine Sit to Supine Moderate Assistance Scooting Scooting to Edge of Bed Standby Assistance PT-Transfer Assessment Sit to and From Stand Sit to and from Stand Minimal Assistance 1 Person Assistance Equipment Transfer Assistive Device Bed Rail Front Wheeled Walker Orthotic/Prosthetic Devices or Brace: No Gait Assessment Gait Gait Assistance Required: Minimum Assistance Distance (Feet) 100 Able to Maintain Weight Bearing Status Yes During Gait Assistive Devices Assistive Device Gait Belt Front Wheeled Walker Orthotic/Prosthetic Devices or Brace: No Gait Deviations General Gait Pattern Decreased Stride Length Decreased Feet Clearance Factors Limiting Gait Function Factors Limiting Gait Function Decreased Activity Tolerance Decreased Strength Limited Range of Motion Pain Poor Balance Poor Safety Awareness M5 PT-IP Objective Assessments Start: 01/07/19 10:49 Freq: NEEDED Status: Active Protocol: Document 01/07/19 14:30 AB (Rec: 01/07/19 16:21 AB [id number]) Orientation Orientation/Cognition Level of Alertness Alert Orientation Name Place Situation Gross Range of Motion Lower Extremity ROM Assessment Within Functional Limits Strength Lower Extremity Strength Assessment Bilaterally Impaired Comments Strength Comments RLE: 3+/5 LLE: 3-/5 Coordination Assessment Gross Coordination Gross Coordination WNL Muscle Tone Muscle Tone WNL Yes M6 PT-IP Treatment Start: 01/07/19 10:49 Freq: NEEDED Status: Active Protocol: Document 01/08/19 09:40 AB (Rec: 01/08/19 12:38 AB [id number]) Physical Therapy Treatment Education Education Provided Precautions Safety M7 PT-IP Assessment and Plan Start: 01/07/19 10:49 Freq: NEEDED Status: Active Protocol: Document 01/08/19 09:40 AB (Rec: 01/08/19 12:38 AB [id number]) PT Summary Assessment and Plan Potential Rehabilitation Potential Good Summary Impairments Pain ROM Strength Balance Coordination Sensation Tone Cognition Bed Mobility Transfers Gait Activity Tolerance Progress Towards Goals Slow Progress due to Pain Assessment Summary pt progressing slowly with mobility and able to tolerate more activity today. pt requires mod A with bed mobiltiy and min A for transfers and ambulation. pt has limited assistance at home . pt will require SNF rehab to improve strength and independence. Goals Bed Mobility Goal Standby Assistance Transfer Goal Standby Assistance Front Wheeled Walker Gait Goal Standby Assistance Front Wheel Walker Gait Distance 100 Other Goals up/down 2 steps without rails CGA Days to Meet Goals 5 Frequency of Treatment Frequency Of Treatment Twice a Day Treatment Plan Physical Therapy Treatment Plan Bed Mobility Training Transfer Training Gait Training Therapeutic Exercise Balance Retraining Post Op Education Discharge Planning Hot or Cold Pack Neuromuscular Re-ed Coordination Retraining Manual Therapy Recommendations To Nursing Amount of Assist Needed 1 Person Assist Discharge Recommendations PT Discharge Recommendations SNF Rehab Equipment Needed for Home Before FWW Discharge
[2019-01-08 13:00] VITALS: BP 136/68; PULSE 90; RESP 16; TEMP 36.7; O2SAT 97
[2019-01-08] MEDS: diazePAM 5 MG TABLET PO (13:34)
--- NOTE | 2019-01-08 13:50 | PT.IPTN ---
Current Diagnoses Other forms of scoliosis, lumbar region (01/06/19) Spinal stenosis, lumbar region with neurogenic claudication (01/06/19) Other specified postprocedural states (01/06/19) Surgery Performed Operation Date: 01/06/19 10:15 Actual Procedures p L3-4 laminectomy, L4-5, L5-S1 redo laminectomies, L2-S1 anterior/ posterior instrumented fusion with bone graft - Nakul Earl MD Physical Therapy Treatment Note M2 PT-IP Current Condition Start: 01/07/19 10:49 Freq: NEEDED Status: Active Protocol: Document 01/07/19 14:30 AB (Rec: 01/07/19 16:21 AB [id number]) Physical Therapy Current Condition Current Condition Evaluation Date 01/07/19 Treatment Diagnosis s/p L2-5 ant fusion with cage/ post fusion, L3-4 L4S1 lami, diff in walking Onset Date 01/06/19 Precautions Lumbar Precautions Log Roll No Twisting Limit Bending Lifting Restriction of 10 lbs Gait Belt above Incisional Area M3 PT-IP Subjective Start: 01/07/19 10:49 Freq: NEEDED Status: Active Protocol: Document 01/08/19 13:50 AB (Rec: 01/08/19 15:39 AB [id number]) Subjective Physical Therapy Visit Type Type Treatment Note Visit Start Time 13:50 Visit Stop Time 14:40 Total Visit Minutes 50 Number of LACE WEAVER Visits 0 Physical Therapy Visit Comments Patient Comments pt agreeable to do PT Therapy Pain Assessment Pain When Pain Assessed At Rest Pain Present Pain Present Pain Reported Location Lower Back Intensity 9 Scale Used Numeric (1 - 10) Pain Management Techniques Apply Cold Re-positioning Timing of Activity with Medications M4 PT-IP Mobility and Gait Start: 01/07/19 10:49 Freq: NEEDED Status: Active Protocol: Document 01/08/19 13:50 AB (Rec: 01/08/19 15:39 AB [id number]) PT-Bed Mobility Assessment Rolling Level of Assist Moderate Assistance Supine to Sit Supine to Sit Maximum Assistance 1 Person Assistance Sit to Supine Sit to Supine Moderate Assistance 1 Person Assistance PT-Transfer Assessment Sit to and From Stand Sit to and from Stand Minimal Assistance 1 Person Assistance Use of Upper Extremities Equipment Transfer Assistive Device Gait Belt Standard Walker Orthotic/Prosthetic Devices or Brace: No Transfers Transfer Destination Toilet Transfer Technique pt ambulated using FWW Transfer Ability Level of Assist Contact Guard Assistance Minimal Assistance 1 Person Assistance Comments Mobility Comments pt owns a standard walker at home. pt ambulated to the toilet using standard walker CGA to min A and cues. pt required min A for controlled descent to the toilet. pt completed sit to stand from the toilet using grab bar and walker mod A and cues. pt ambulated towards the sink using standard walker CGA and completed grooming. able to maintain standing CGA. Gait Assessment Gait Gait Assistance Required: Contact Guard Assist Minimum Assistance Distance (Feet) 100 Able to Maintain Weight Bearing Status Yes During Gait Assistive Devices Assistive Device None Standard Walker Orthotic/Prosthetic Devices or Brace: No Gait Deviations General Gait Pattern Antalgic Decreased Stride Length Decreased Feet Clearance Factors Limiting Gait Function Factors Limiting Gait Function Decreased Activity Tolerance Decreased Strength Limited Range of Motion Pain Poor Balance Poor Safety Awareness Comments Gait Comments pt completed ambulation rquiring CGA to min A and cues . presents with slow marcellus requiring increase time to complete task. M5 PT-IP Objective Assessments Start: 01/07/19 10:49 Freq: NEEDED Status: Active Protocol: Document 01/07/19 14:30 AB (Rec: 01/07/19 16:21 AB [id number]) Orientation Orientation/Cognition Level of Alertness Alert Orientation Name Place Situation Gross Range of Motion Lower Extremity ROM Assessment Within Functional Limits Strength Lower Extremity Strength Assessment Bilaterally Impaired Comments Strength Comments RLE: 3+/5 LLE: 3-/5 Coordination Assessment Gross Coordination Gross Coordination WNL Muscle Tone Muscle Tone WNL Yes M6 PT-IP Treatment Start: 01/07/19 10:49 Freq: NEEDED Status: Active Protocol: Document 01/08/19 13:50 AB (Rec: 01/08/19 15:39 AB [id number]) Physical Therapy Treatment Education Education Provided Precautions Safety M7 PT-IP Assessment and Plan Start: 01/07/19 10:49 Freq: NEEDED Status: Active Protocol: Document 01/08/19 13:50 AB (Rec: 01/08/19 15:39 AB [id number]) PT Summary Assessment and Plan Potential Rehabilitation Potential Good Summary Impairments Pain ROM Strength Balance Coordination Sensation Tone Cognition Bed Mobility Transfers Gait Activity Tolerance Progress Towards Goals Progressing Toward Goals Assessment Summary pt progressing with mobility but continues to require min A . pt will benefit from SNF rehab to improve strength and mobility. Goals Bed Mobility Goal Standby Assistance Transfer Goal Standby Assistance Front Wheeled Walker Gait Goal Standby Assistance Front Wheel Walker Gait Distance 100 Other Goals up/down 2 steps without rails CGA Days to Meet Goals 5 Frequency of Treatment Frequency Of Treatment Twice a Day Treatment Plan Physical Therapy Treatment Plan Bed Mobility Training Transfer Training Gait Training Therapeutic Exercise Balance Retraining Post Op Education Discharge Planning Hot or Cold Pack Neuromuscular Re-ed Coordination Retraining Manual Therapy Recommendations To Nursing Amount of Assist Needed 1 Person Assist Discharge Recommendations PT Discharge Recommendations SNF Rehab
--- NOTE | 2019-01-08 15:07 | OT.IP.TRT ---
Current Diagnoses Other forms of scoliosis, lumbar region (01/06/19) Spinal stenosis, lumbar region with neurogenic claudication (01/06/19) Other specified postprocedural states (01/06/19) Surgery Performed Operation Date: 01/06/19 10:15 Actual Procedures p L3-4 laminectomy, L4-5, L5-S1 redo laminectomies, L2-S1 anterior/ posterior instrumented fusion with bone graft - Nakul Earl MD Occupational Therapy Treatment Note M2 OT-IP Current Condition Start: 01/07/19 18:31 Freq: Status: Active Protocol: Document 01/07/19 14:45 [facility] (Rec: 01/07/19 18:51 [facility] [email or web address]) Occupational Therapy Current Condition Current Condition Evaluation Date 01/07/19 Treatment Diagnosis Lumbar stenosis Diagnosis Onset Date 01/06/19 Post Operative Precautions Lumbar Precautions Log Roll No Twisting Limit Bending Lifting Restriction of 10 lbs Gait Belt above Incisional Area Weight Bearing Status Weight Bearing Status Weight Bear as Tolerated M3 OT- IP Subjective and Pain Start: 01/07/19 18:31 Freq: Status: Active Protocol: Document 01/08/19 15:03 [facility] (Rec: 01/08/19 15:07 [facility] [email or web address]) OT- Subjective Occupational Therapy Visit Type Type Treatment Note Visit Start Time 15:45 Visit Stop Time 15:55 Total Visit Minutes 10 Occupational Therapy Visit Comments Patient Comments Pt wanting to brush her teeth while in bed. Pt states in too much pain and not wanting to get up at this time. OT Pain Assessment Pain When Pain Assessed At Rest Pain Present Pain Present Pain Reported Location Lower Back Intensity 8 Scale Used Numeric (1 - 10) M4 OT- IP ADL's Start: 01/07/19 18:31 Freq: Status: Active Protocol: Document 01/08/19 15:03 [facility] (Rec: 01/08/19 15:07 [facility] [email or web address]) OT ADL-Grooming General Evaluation Grooming Ability Standby Assistance Areas Needing Assistance Retrieving/Set-up of Grooming Items OT ADL-Bathing Comments OT Bathing Comments Pt still hoping to go home, however has multiple steps as shower upstairs. Pt able to stay on main level in power recliner. M5 OT- IP IADL's Start: 01/07/19 18:31 Freq: Status: Active Protocol: Document 01/07/19 14:45 [facility] (Rec: 01/07/19 18:51 [facility] [email or web address]) OT-Instrumental Activities of Daily Living Meal Preparation Meal Preparation Comments to assist. Real Estate Firm Manager Real Estate Firm Manager Comments to assist. M6 OT- IP Functional Cognition Start: 01/07/19 18:31 Freq: Status: Active Protocol: Document 01/07/19 14:45 [facility] (Rec: 01/07/19 18:51 [facility] [email or web address]) Cognitive Factors Limiting Selfcare Function Cognitive Ability Level of Alertness Alert Patient Orientation Name Place Situation Attention Span Ability Capable of Focused Attention Capable of Sustained Attention Ability to Follow Commands Able to Follow One Step Commands Memory Description No Deficits Noted Safety Awareness Underestimates Need for Assistance Cognitive Comments Cognitive Assessment Comments Pt needing lots of encouragement and cues for safety initially. Pt able to recall 3/3/ back precautions. OT- Vision and Hearing OT- Hearing Assessment OT- Hearing Assessment WFL M7 OT- IP Mobility and Balance Start: 01/07/19 18:31 Freq: Status: Active Protocol: Document 01/07/19 14:45 [facility] (Rec: 01/07/19 18:51 [facility] [email or web address]) OT- Bed Mobility Assessment Rolling Type of Rolling Roll to Right Supine to Sit Supine to Sit Assist Maximum Assistance 1 Person Assistance Sit to Supine Sit to Supine Assist Maximum Assistance 1 Person Assistance Scooting Scooting to Edge of Bed Minimal Assistance Maximum Assistance 1 Person Assistance OT-Transfer Assessment Sit to and From Stand Sit to and from Stand Moderate Assistance Maximum Assistance 1 Person Assistance Transfers Transfer Ability Moderate Assistance 1 Person Assistance Technique Transfer Destination Bed Chair Transfer Technique Stand Step Pivot Devices Transfer Assistive Devices Gait Belt Front Wheeled Walker Comments Mobility Comments Pt MAX A x 1 for bed mobility needs, assist to help get trunk upright mainly. Pt scooting in bed MAX A X 1 and while sitting in recliner and able to use arms on armrests ANNE MARIE x1 . Sit to stand MODA to MAX Ax1. Pt able to use FWW to transfer initially needing assist for balacne and to help move FWW MODA X 2 and at the end of the session MODA X 1 with FWW. OT- Balance Assessment Sitting Balance and Reactions Static Sitting Balance Ability Fair Dynamic Sitting Balance Ability Poor Standing Balance and Reactions Static Standing Balance Ability Poor M8 OT- IP Objective Assessments Start: 01/07/19 18:31 Freq: Status: Active Protocol: Document 01/07/19 14:45 [facility] (Rec: 01/07/19 18:51 [facility] [email or web address]) OT Gross Range of Motion Upper Extremity Range of Motion Assessment Within Functional Limits OT Strength Upper Extremity Strength Assessment Within Functional Limits M9 OT- IP Assessment and Plan Start: 01/07/19 18:31 Freq: Status: Active Protocol: Document 01/08/19 15:03 [facility] (Rec: 01/08/19 15:07 [facility] [email or web address]) OT Summary Assessment and Plan Summary OT Impairments Pain Functional Mobility Grooming Dressing Toileting Bathing Toilet Transfers Shower Transfers Progress Towards Goals Slow Progress due to Pain Assessment Summary Pt per PT still needing MAX A x 1 for bed mobility needs. In addition pt has to step up in order to get into her vehicle at this time. Pt would benefit form short skilled rehab prior to going home. Goals Grooming Goal Standby Assistance Dressing Goal Standby Assistance Toileting Goal Independent Bathing Goal Minimal Assistance Toilet Transfer Goal Independent Shower Transfer Goal Minimal Assistance Patient/Caregiver Education Goal Caregiver Independent Assisting Patient Days to Meet Goals 7 Frequency of Treatment Frequency Of Treatment Once a Day Treatment Plan OT Treatment Plan ADL Training Functional Cognition Training Functional Mobility Patient/Family Education Discharge Planning Other Treatment Recommendations and Next standing at sink , walk to the Treatment Focus bathroomm with FWW, caregiver training Discharge Recommendations OT Discharge Recommendations SNF Rehab Other Discharge Recommendations Pending progress and caregiver training home with 24/ 7assist versus skilled rehab. Home Equipment Needs BSC, FWW, shower chair
--- NOTE | 2019-01-08 15:21 | CM.IDA ---
Initial DCP Assessment Note: Pt is a 73 yo female, resident of [place]. Pt admitted for spinal surgery w/ Dr Earl. Pt is POD#2 from her surgery. PCP not listed Payer: [employer]/Medicare Met w/pt and her Kirill this morning, explained role. Dr Earl left this LIGHTING ADVISER a signed F2F in anticipation of pt's need for addtl. support. This LIGHTING ADVISER reviews Home health service, also reviewed therapy recommendation for SNF. Pt/spouse admit pt will DC home alone nad they feel SNF might be a safer, more realistic plan for pt. Pt/spouse request a referral be sent to [facility] in [place] P# [phone] F#[phone]. This LIGHTING ADVISER faxed initial clinical packet. Spoke to Laurita today at [facility]; she reviewed and pt has been tentatively accepted pending auth through [employer]; which can be started Thursday morning by admissions staff at [facility]. Pt also has Medicare A+B as her secondary if [employer] denies SNF auth. PASRR completed. F/u needed Thursday w/staff at [facility] to inquire about auth through [employer]. If pt improves enough to go home alone, HH needs to be arranged through an agency that serves [place]. F2F signed by Dr Earl already. KAZ Antoine Discharge Planning/Care Management CM Discharge Assessment Start: 01/08/19 15:17 Freq: Status: Active Protocol: Document 01/08/19 15:17 [facility] (Rec: 01/08/19 15:20 [facility] [id number]) Discharge Planning Assessment Assigned Cap And Hat Production Supervisor KAZ Mahmood DPOA/Assigned Designee Name Kirill Finney, spouse Contact Information [phone] Advance Directives? Yes History Provided By Patient Significant Other Medical Record Prior Living Arrangements House Household Members spouse Type of transporation used prior to Drives own vehicle admit Independent with ADL's Yes Is patient alert and oriented? Yes Barriers to Discharge Yes Discharge Plan Long Term Facility Transportation Arrangement Spouse Referrals Initiated Long Term Additional Comment [facility] Whiteboard Updated in Patient Room with Yes name and ext. # of Cap And Hat Production Supervisor Review Status In Process
[2019-01-08 15:56] VITALS: BP 153/77; PULSE 88; RESP 18; TEMP 37.2; O2SAT 99
[2019-01-08 20:29] VITALS: BP 133/67; PULSE 98; RESP 16; TEMP 36.7; O2SAT 96
[2019-01-08] MEDS: HYDROMORPHONE 4 MG TABLET PO (21:23)
[2019-01-08] MEDS: SENNOSIDES 8.6 MG TABLET 17.2 MG PO (21:25)
--- NOTE | 2019-01-08 22:55 | PC.NURSE ---
Pt up to bathroom with SBA. Reported severe pain (9/10) at 1630 and given 4 mg of PO diluadid then next dose given 4 hours later. Pt reported that this is too long to wait - needs it every three hours. She is unsure whether she can go home if the pain is not controlled. This RN advised to see how she feels tomorrow. IV removed due to it feeling tender jef when flushed.
[2019-01-08 23:30] VITALS: BP 156/91; PULSE 92; RESP 18; TEMP 36.7; O2SAT 98
[2019-01-09] MEDS: HYDROMORPHONE 4 MG TABLET PO (00:31)
[2019-01-09 03:44] VITALS: BP 155/78; PULSE 89; RESP 19; TEMP 37; O2SAT 99
[2019-01-09] MEDS: HYDROMORPHONE 2 MG TABLET 4 MG PO ×6 (03:58→20:28)
[2019-01-09] MEDS: ACETAMINOPHEN 325 MG TABLET 650 MG PO ×3 (03:58→19:22)
--- NOTE | 2019-01-09 05:08 | PC.NURSE ---
Assumed care of pt at 2300 on 01/08/19. pt up ambulating to bathroom during bedside hand-off. Steady on feet 1 pa w/fww. Drsg with old shadow drainage to back. L. flank drsg c/d/i. PO dialudid given per nov. Analgesic management plan established for noc shift. Pt able to help turn position in bed bed while following spinal precautions of no bending, lifting or twisting. Calling appropriately for needs.
[2019-01-09] MEDS: diazePAM 5 MG TABLET PO (05:55)
[2019-01-09] MEDS: LEVOTHYROXINE 75 MCG TABLET PO (05:57)
[2019-01-09] MEDS: LIOTHYRONINE 5 MCG TABLET PO (05:58)
[2019-01-09 07:48] VITALS: BP 144/72; PULSE 75; RESP 14; TEMP 37.1; O2SAT 97
--- NOTE | 2019-01-09 08:01 | PM.PNPO.1 ---
Subjective Date Patient Seen: 01/09/19 Time Patient Seen: 08:01 Interval history: Her pain levels greatly began increasing yesterday afternoon. She is about a 9/10 currently. Feels like she is behind on her medication and if she can just catch up and she will be doing much better. She is mobilizing better and able to move around. All of her pain is across the back and wrapping around the abdomen to the upper front of the thighs. Exam Vital Signs (past 8 hours): - 01/09/19 03:44 Temperature 98.6 F Pulse Rate 89 Respiratory Rate 19 Blood Pressure 155/78 H Pulse Oximetry 99 Oxygen Delivery Method Nasal Cannula Oxygen Flow Rate 0 Const Orientation: alert and oriented x3 Back/Spine/Pelvis Other: CDI. 5/5 motor both lower extremities. Objective Labs Result Diagrams: 01/07/19 07:58 01/07/19 07:58 Assessment & Plan Post-op Postoperative Procedures Operation Date: 01/06/19 10:15 Actual Procedures Side Surgeon p L3-4 laminectomy, L4-5, L5-S1 redo laminectomies, L2-S1 anterior/ posterior instrumented fusion with bone graft Nakul Earl MD the residual her epidural most likely wear off yesterday morning and she has been more active increasing her pain. She has done well with tizanidine in the past and we will try adding this. Continue to mobilize with therapy. If we can get her pain under control she may be able to leave this afternoon, if not plan for discharge home tomorrow. Arrangements are being made for home health. Quality VTE Deep Vein Thrombosis/Pulmonary Embolism Present on Admission: No
[2019-01-09] MEDS: MAGNESIUM CITRATE 300 ML SOLUTION 150 ML PO (10:47)
[2019-01-09] MEDS: TIZANIDINE 4 MG TABLET PO ×4 (10:48→20:28)
[2019-01-09] MEDS: DOCUSATE 100 MG CAPSULE PO ×2 (10:48→20:28)
[2019-01-09] MEDS: valACYclovir 500 MG TABLET PO ×2 (10:48→20:28)
[2019-01-09] MEDS: LOSARTAN 50 MG TABLET 100 MG PO (10:57)
[2019-01-09] MEDS: hydroCHLOROthiazide 25 MG TABLET PO (10:57)
[2019-01-09 11:25] VITALS: BP 110/72; PULSE 92; RESP 16; TEMP 37.4; O2SAT 98
--- NOTE | 2019-01-09 11:43 | PC.NURSE ---
Addendum entered by Pepper Presley R.N. 01/09/19 13:32: Pt ambulated with PT and tolerated well, she also did stairs and should be ready to discharge home tomorrow. She is lying on her r.side. Denies any numbness or tingling to lower extremities and is comfortable. She has requested to be woken up for pain medication. Pt had a large bowel movement this morning. Original Note: Pt given dilaudid and muscle relaxer for complaints of 8/10. She is sitting up in her chair comfortably and drinking her mag citrate to help promote a bowel movement. Just in the bathroom and pt did move her bowels. Her still wants her to finish her mag citrate. Pt is drinking this over ice. Pt also requested her prn losartan/hctz for increase in bp. This has been given and pt is comfortable. Visiting with her at this time.
--- NOTE | 2019-01-09 12:15 | PT.IPTN ---
Current Diagnoses Other forms of scoliosis, lumbar region (01/06/19) Spinal stenosis, lumbar region with neurogenic claudication (01/06/19) Other specified postprocedural states (01/06/19) Surgery Performed Operation Date: 01/06/19 10:15 Actual Procedures p L3-4 laminectomy, L4-5, L5-S1 redo laminectomies, L2-S1 anterior/ posterior instrumented fusion with bone graft - Nakul Earl MD Physical Therapy Treatment Note M2 PT-IP Current Condition Start: 01/07/19 10:49 Freq: NEEDED Status: Active Protocol: Document 01/07/19 14:30 AB (Rec: 01/07/19 16:21 AB [id number]) Physical Therapy Current Condition Current Condition Evaluation Date 01/07/19 Treatment Diagnosis s/p L2-5 ant fusion with cage/ post fusion, L3-4 L4S1 lami, diff in walking Onset Date 01/06/19 Precautions Lumbar Precautions Log Roll No Twisting Limit Bending Lifting Restriction of 10 lbs Gait Belt above Incisional Area M3 PT-IP Subjective Start: 01/07/19 10:49 Freq: NEEDED Status: Active Protocol: Document 01/09/19 12:15 [facility] (Rec: 01/09/19 12:52 [facility] [email or web address]) Subjective Physical Therapy Visit Type Type Treatment Note Visit Start Time 11:50 Visit Stop Time 12:15 Total Visit Minutes 25 Number of OCCUP THER Visits 1 Physical Therapy Visit Comments Patient Comments Pt states she feeling better. Therapy Pain Assessment Pain When Pain Assessed At Rest Pain Present Pain Present Pain Reported Location Lower Back Intensity 5 Scale Used Numeric (1 - 10) Pain Management Techniques Apply Cold Re-positioning Timing of Activity with Medications M4 PT-IP Mobility and Gait Start: 01/07/19 10:49 Freq: NEEDED Status: Active Protocol: Document 01/09/19 12:15 [facility] (Rec: 01/09/19 12:52 [facility] [email or web address]) PT-Transfer Assessment Sit to and From Stand Sit to and from Stand Contact Guard Assistance 1 Person Assistance Use of Upper Extremities Equipment Transfer Assistive Device Gait Belt Standard Walker Orthotic/Prosthetic Devices or Brace: No Transfers Transfer Destination Wheelchair Transfer Ability Level of Assist Contact Guard Assistance 1 Person Assistance Use of Upper Extremities Gait Assessment Gait Gait Assistance Required: Contact Guard Assist Minimum Assistance Distance (Feet) 200 Able to Maintain Weight Bearing Status Yes During Gait Assistive Devices Assistive Device None Standard Walker Orthotic/Prosthetic Devices or Brace: No Gait Deviations General Gait Pattern Antalgic Decreased Stride Length Decreased Feet Clearance Factors Limiting Gait Function Factors Limiting Gait Function Decreased Activity Tolerance Decreased Strength Limited Range of Motion Pain Poor Balance Poor Safety Awareness Stair Climbing Assessment Evaluation Level of Assist On Stairs Minimal Assistance 1 Person Assistance Devices Stair Climbing Assistive Devices Straight Cane Technique/Endurance Stair Climbing Direction Ascend and Descend Stair Climbing Technique Step to Step Number of Steps Climbed 3 Query Text: Stair Climbing Set # Repetitions (reps) 2 Comments Stair Climbing Comments Pt ambulated stair with SCP and hand hold assist with min A. M5 PT-IP Objective Assessments Start: 01/07/19 10:49 Freq: NEEDED Status: Active Protocol: Document 01/07/19 14:30 AB (Rec: 01/07/19 16:21 AB [id number]) Orientation Orientation/Cognition Level of Alertness Alert Orientation Name Place Situation Gross Range of Motion Lower Extremity ROM Assessment Within Functional Limits Strength Lower Extremity Strength Assessment Bilaterally Impaired Comments Strength Comments RLE: 3+/5 LLE: 3-/5 Coordination Assessment Gross Coordination Gross Coordination WNL Muscle Tone Muscle Tone WNL Yes M6 PT-IP Treatment Start: 01/07/19 10:49 Freq: NEEDED Status: Active Protocol: Document 01/09/19 12:15 [facility] (Rec: 01/09/19 12:52 [facility] [email or web address]) Physical Therapy Treatment Education Education Provided Precautions Safety M7 PT-IP Assessment and Plan Start: 01/07/19 10:49 Freq: NEEDED Status: Active Protocol: Document 01/09/19 12:15 [facility] (Rec: 01/09/19 12:52 [facility] [email or web address]) PT Summary Assessment and Plan Summary Assessment Summary Pt improving with mobility. She was able to progress gait and step length. She was safe and stable with stair mobility . Pt safe for home D/C when medically stable. Frequency of Treatment Frequency Of Treatment Twice a Day Treatment Plan Physical Therapy Treatment Plan Bed Mobility Training Transfer Training Gait Training Therapeutic Exercise Balance Retraining Post Op Education Discharge Planning Hot or Cold Pack Neuromuscular Re-ed Coordination Retraining Manual Therapy Other Recommendations and Next Treatment stair training with Focus Recommendations To Nursing Amount of Assist Needed 1 Person Assist Discharge Recommendations PT Discharge Recommendations SNF Rehab
--- NOTE | 2019-01-09 14:37 | PT.IPTN ---
Current Diagnoses Other forms of scoliosis, lumbar region (01/06/19) Spinal stenosis, lumbar region with neurogenic claudication (01/06/19) Other specified postprocedural states (01/06/19) Surgery Performed Operation Date: 01/06/19 10:15 Actual Procedures p L3-4 laminectomy, L4-5, L5-S1 redo laminectomies, L2-S1 anterior/ posterior instrumented fusion with bone graft - Nakul Earl MD Physical Therapy Treatment Note M2 PT-IP Current Condition Start: 01/07/19 10:49 Freq: NEEDED Status: Active Protocol: Document 01/07/19 14:30 AB (Rec: 01/07/19 16:21 AB [id number]) Physical Therapy Current Condition Current Condition Evaluation Date 01/07/19 Treatment Diagnosis s/p L2-5 ant fusion with cage/ post fusion, L3-4 L4S1 lami, diff in walking Onset Date 01/06/19 Precautions Lumbar Precautions Log Roll No Twisting Limit Bending Lifting Restriction of 10 lbs Gait Belt above Incisional Area M3 PT-IP Subjective Start: 01/07/19 10:49 Freq: NEEDED Status: Active Protocol: Document 01/09/19 14:32 GGD (Rec: 01/09/19 14:37 GGD [id number]) Subjective Physical Therapy Visit Type Type Treatment Note Visit Start Time 14:00 Visit Stop Time 14:30 Total Visit Minutes 30 Number of BUSINESS INTEGRATION ANALYST Visits 2 Physical Therapy Visit Comments Patient Comments Pt states she would like to use the bathroom. Therapy Pain Assessment Pain When Pain Assessed At Rest Pain Present Pain Present Pain Reported Location Lower Back Intensity 7 Scale Used Numeric (1 - 10) Pain Management Techniques Re-positioning Timing of Activity with Medications M4 PT-IP Mobility and Gait Start: 01/07/19 10:49 Freq: NEEDED Status: Active Protocol: Document 01/09/19 14:32 GGD (Rec: 01/09/19 14:37 GGD [id number]) PT-Bed Mobility Assessment Rolling Level of Assist Contact Guard Assistance Supine to Sit Supine to Sit Contact Guard Assistance 1 Person Assistance Sit to Supine Sit to Supine Minimal Assistance 1 Person Assistance Scooting Scooting to Edge of Bed Standby Assistance PT-Transfer Assessment Sit to and From Stand Sit to and from Stand Contact Guard Assistance 1 Person Assistance Use of Upper Extremities Equipment Transfer Assistive Device Gait Belt Standard Walker Orthotic/Prosthetic Devices or Brace: No Transfers Transfer Destination Chair Toilet Transfer Ability Level of Assist Contact Guard Assistance 1 Person Assistance Use of Upper Extremities Gait Assessment Gait Gait Assistance Required: Contact Guard Assist Minimum Assistance Distance (Feet) 250 Able to Maintain Weight Bearing Status Yes During Gait Assistive Devices Assistive Device None Standard Walker Orthotic/Prosthetic Devices or Brace: No Gait Deviations General Gait Pattern Antalgic Decreased Stride Length Decreased Feet Clearance Factors Limiting Gait Function Factors Limiting Gait Function Decreased Activity Tolerance Decreased Strength Limited Range of Motion Pain Poor Balance Poor Safety Awareness M5 PT-IP Objective Assessments Start: 01/07/19 10:49 Freq: NEEDED Status: Active Protocol: Document 01/07/19 14:30 AB (Rec: 01/07/19 16:21 AB [id number]) Orientation Orientation/Cognition Level of Alertness Alert Orientation Name Place Situation Gross Range of Motion Lower Extremity ROM Assessment Within Functional Limits Strength Lower Extremity Strength Assessment Bilaterally Impaired Comments Strength Comments RLE: 3+/5 LLE: 3-/5 Coordination Assessment Gross Coordination Gross Coordination WNL Muscle Tone Muscle Tone WNL Yes M6 PT-IP Treatment Start: 01/07/19 10:49 Freq: NEEDED Status: Active Protocol: Document 01/09/19 14:32 GGD (Rec: 01/09/19 14:37 GGD [id number]) Physical Therapy Treatment Education Education Provided Precautions Safety M7 PT-IP Assessment and Plan Start: 01/07/19 10:49 Freq: NEEDED Status: Active Protocol: Document 01/09/19 14:32 GGD (Rec: 01/09/19 14:37 GGD [id number]) PT Summary Assessment and Plan Summary Assessment Summary Pt improving wiht mobility. She need min a for bed mobility. She able to progress gait distance. Frequency of Treatment Frequency Of Treatment Twice a Day Treatment Plan Physical Therapy Treatment Plan Bed Mobility Training Transfer Training Gait Training Therapeutic Exercise Balance Retraining Post Op Education Discharge Planning Hot or Cold Pack Neuromuscular Re-ed Coordination Retraining Manual Therapy Other Recommendations and Next Treatment stair training with and Focus without right rail. Recommendations To Nursing Amount of Assist Needed 1 Person Assist Discharge Recommendations PT Discharge Recommendations Home with Assistance
[2019-01-09 16:14] VITALS: BP 95/54; PULSE 80; RESP 16; TEMP 36.8; O2SAT 98
[2019-01-09] MEDS: HYDROCORTISONE 1% CREAM 28 GM 1 APPLIC TOP (17:19)
[2019-01-09 20:05] VITALS: BP 100/57; PULSE 79; RESP 17; TEMP 36.9; O2SAT 97
[2019-01-09] MEDS: SENNOSIDES 8.6 MG TABLET 17.2 MG PO (20:28)
[2019-01-09 23:23] VITALS: BP 101/57; PULSE 65; RESP 18; TEMP 36.1; O2SAT 100
[2019-01-10] MEDS: HYDROMORPHONE 2 MG TABLET 4 MG PO ×4 (00:13→11:39)
[2019-01-10] MEDS: HYDROCORTISONE 1% CREAM 28 GM 1 APPLIC TOP (01:37)
[2019-01-10] MEDS: clonazePAM 0.5 MG TABLET 1 MG PO (02:01)
[2019-01-10 02:07] VITALS: BP 124/72; PULSE 74; RESP 16; TEMP 36.8; O2SAT 100
[2019-01-10] MEDS: TIZANIDINE 4 MG TABLET PO ×3 (03:41→11:39)
[2019-01-10 04:41] VITALS: BP 123/67; PULSE 89; RESP 16; TEMP 37.1; O2SAT 99
[2019-01-10] MEDS: LEVOTHYROXINE 50 MCG TABLET PO (06:51)
[2019-01-10] MEDS: LIOTHYRONINE 5 MCG TABLET PO (06:51)
[2019-01-10 07:45] VITALS: BP 110/58; PULSE 81; RESP 16; TEMP 36.7; O2SAT 97
--- NOTE | 2019-01-10 07:46 | P.DS_ITS ---
History of Present Illness Date Patient Seen: 01/10/19 Time Patient Seen: 07:42 Chief complaint: [id number] Narrative: Patient's pain is moderate to severe. She states is manageable with the current pain meds. Denies fever chills. No nausea vomiting. She has been up several times with physical therapy. Patient states she is ready to go home. Her is home and available to assist her. Discharge Providers Date of admission: 01/06/19 08:21 Discharge Date: 01/10/19 Consults: 01/06/19 19:31 Consult to Occupational Therapy Evaluate & Treat Comment: Physician Instructions: Evaluate and treat Consult to Physical Therapy Evaluate & Treat Comment: may get up and OOB after 7AM Physician Instructions: Evaluate and Treat Discharge provider: Hay Jones PA-C Summary Discharge Diagnosis: Status post L2-3, L3-4, L4-5 anterior fusion with cages L2-3, L3-4, L4-5 posterior fusion L5-S1 TLIF (post/post interbody fusion) with cage L2 through S1 screws Iliac crest bone graft L3-4 laminectomy L4-5, L5-S1 revision laminotomies Hospital Course: [age] year old female with intractable pain from stenosis. They had failed conservative management and requested operative intervention. Risks and benefits of surgery were discussed and appropriate consents were obtained. Surgeon: Nakul Earl Lighting Engineering Technician: Ariana Felix Anesthesia Type: General Operative Notes Findings: Dural tear, repaired primarily Closure Type: primary Specimen(s): none sent Prosthetic devices, grafts, tissues, transplants, or devices: NuVasive MAS reline screws NuVasive XLIF cages Globus Rise cage Applied: catheter Estimated Blood Loss (mL): 100 Blood products transfused: none Patient admitted to the hospital for the above-mentioned procedure. patient consented to the same. Patient taken to the operating room underwent lumbar surgery and is back in her room recovering well and is in stable condition. she has had some pain issues which are better controlled at this point. Status at Discharge Cognitive/behavioral status at discharge: at baseline, oriented Functional status at discharge: uses cane/walker Overall status at discharge: patient is progressing back to baseline Time Spent with Patient Less than 30 minutes Exam Vital Signs (past 8 hours): - 01/10/19 02:07 01/10/19 04:41 Temperature 98.2 F 98.8 F Pulse Rate 74 89 Respiratory Rate 16 16 Blood Pressure 124/72 123/67 Pulse Oximetry 100 99 Oxygen Delivery Method Room Air Oxygen Flow Rate 0 Narrative Exam Narrative: 73-year-old female resting comfortably in bed in no apparent distress. dressings are clean, dry and intact. neurovascular status is intact to the distal bilateral lower extremities. Objective Labs Result Diagrams: 01/07/19 07:58 01/07/19 07:58 Discharge Plan Discharge Plan Patient Disposition: Home Discharge comment: arrange home health f/u 1.5 wks Discharge Med Rec/Prescriptions Prescriptions: New docusate sodium 100 mg Capsule 100 mg PO BID PRN (Reason: constipation) Qty: 40 RF: 0 hydromorphone 2 mg Tablet See Rx Instructions .ROUTE .COMPLEX PRN (Reason: Pain, Severe (7-10)) Qty: 80 RF: 0 tizanidine 4 mg Tablet 4 mg PO Q4H PRN (Reason: Spasms) Qty: 30 RF: 0 Continued valacyclovir 500 mg Tablet 500 mg PO BID RF: 0 liothyronine 5 mcg Tablet 5 mcg PO DAILY RF: 0 losartan-hydrochlorothiazide 100-25 mg Tablet 1 tab PO DAILY PRN (Reason: If SBP > 120) RF: 0 levothyroxine 50 mcg Tablet 50 mcg PO 6XW RF: 0 levothyroxine 75 mcg Capsule 75 mcg PO SEEINSTR RF: 0 clonazepam [Klonopin] 1 mg Tablet 1 mg PO BEDTIME RF: 0 Follow up/Referrals: Nakul Earl MD [Physician] - (Follow up 2 wks post op) Provider Discharge Instructions Diet: Diet as Tolerated Activity: limited BLT/ 10 lbs lifting Skin/Wound/Dressing Care Report to your healthcare provider any signs of infection, such as:: chills, fever, night sweats, increased pain, unusual drainage and unusual redness Dressing: may change and shower POD#5 Visit Report/Discharge Packet Instructions: DI for Laminectomy, DI for Lateral Lumbar Interbody Fusion Discharge Data Attending Provider: Nakul Earl Admit Date/Time: 01/06/19 08:21 Quality VTE Deep Vein Thrombosis/Pulmonary Embolism Present on Admission: No
[2019-01-10] MEDS: valACYclovir 500 MG TABLET PO (08:03)
[2019-01-10] MEDS: DOCUSATE 100 MG CAPSULE PO (08:03)
--- NOTE | 2019-01-10 10:10 | PT.IPTN ---
Current Diagnoses Other forms of scoliosis, lumbar region (01/06/19) Spinal stenosis, lumbar region with neurogenic claudication (01/06/19) Other specified postprocedural states (01/06/19) Surgery Performed Operation Date: 01/06/19 10:15 Actual Procedures p L3-4 laminectomy, L4-5, L5-S1 redo laminectomies, L2-S1 anterior/ posterior instrumented fusion with bone graft - Nakul Earl MD Physical Therapy Treatment Note M2 PT-IP Current Condition Start: 01/07/19 10:49 Freq: NEEDED Status: Active Protocol: Document 01/07/19 14:30 AB (Rec: 01/07/19 16:21 AB [id number]) Physical Therapy Current Condition Current Condition Evaluation Date 01/07/19 Treatment Diagnosis s/p L2-5 ant fusion with cage/ post fusion, L3-4 L4S1 lami, diff in walking Onset Date 01/06/19 Precautions Lumbar Precautions Log Roll No Twisting Limit Bending Lifting Restriction of 10 lbs Gait Belt above Incisional Area M3 PT-IP Subjective Start: 01/07/19 10:49 Freq: NEEDED Status: Active Protocol: Document 01/10/19 10:10 RS (Rec: 01/10/19 10:20 RS [id number]) Subjective Physical Therapy Visit Type Type Discharge Summary Visit Start Time 09:15 Visit Stop Time 10:10 Total Visit Minutes 55 Physical Therapy Visit Comments Patient Comments Pt reports doing well, looking forward to going home today. Therapy Pain Assessment Pain When Pain Assessed At Rest Pain Present Pain Present Denied Pain M4 PT-IP Mobility and Gait Start: 01/07/19 10:49 Freq: NEEDED Status: Active Protocol: Document 01/10/19 10:10 RS (Rec: 01/10/19 10:20 RS [id number]) PT-Bed Mobility Assessment Sit to Supine Sit to Supine Standby Assistance PT-Transfer Assessment Sit to and From Stand Sit to and from Stand Standby Assistance Equipment Transfer Assistive Device Gait Belt 4 Wheeled Walker Transfers Transfer Destination Chair Transfer Technique walked Transfer Ability Level of Assist Standby Assistance Comments Mobility Comments able to safely use 4ww for transfers Gait Assessment Gait Gait Assistance Required: Standby Assistance Distance (Feet) 350 Assistive Devices Assistive Device 4 Wheeled Walker Comments Gait Comments Pt able to walk with ideal mechanics using a 4WW, no LOB or increase in pain. This will be safe to use at home as well. Stair Climbing Assessment Evaluation Level of Assist On Stairs Contact Guard Assistance 1 Person Assistance Devices Stair Climbing Assistive Devices Straight Cane Technique/Endurance Stair Climbing Direction Ascend and Descend Stair Climbing Technique Step to Step Number of Steps Climbed 3 Query Text: Stair Climbing Set # Repetitions (reps) 2 Comments Stair Climbing Comments SO demonstrated ideal guarding /assisting mechanics. Pt able to verbalize to SO how best to help her with each step. PT-Balance Assessment Sitting Balance and Reactions Static Sitting Balance Ability Normal Dynamic Sitting Balance Ability Good Standing Balance and Reactions Static Standing Balance Ability Good Dynamic Standing Balance Ability Good Device Used 4WW M5 PT-IP Objective Assessments Start: 01/07/19 10:49 Freq: NEEDED Status: Active Protocol: Document 01/07/19 14:30 AB (Rec: 01/07/19 16:21 AB [id number]) Orientation Orientation/Cognition Level of Alertness Alert Orientation Name Place Situation Gross Range of Motion Lower Extremity ROM Assessment Within Functional Limits Strength Lower Extremity Strength Assessment Bilaterally Impaired Comments Strength Comments RLE: 3+/5 LLE: 3-/5 Coordination Assessment Gross Coordination Gross Coordination WNL Muscle Tone Muscle Tone WNL Yes M6 PT-IP Treatment Start: 01/07/19 10:49 Freq: NEEDED Status: Active Protocol: Document 01/09/19 14:32 GGD (Rec: 01/09/19 14:37 GGD [id number]) Physical Therapy Treatment Education Education Provided Precautions Safety M7 PT-IP Assessment and Plan Start: 01/07/19 10:49 Freq: NEEDED Status: Active Protocol: Document 01/10/19 10:10 RS (Rec: 01/10/19 10:20 RS [id number]) PT Summary Assessment and Plan Potential Rehabilitation Potential Good Status of Condition at Evaluation Stable Summary Progress Towards Goals Safe For Discharge Goals Met Assessment Summary Pt continues to improve with mobility each session. Pt/SO participated in final CG training without issue. Discussed car transfers, pt not concerned about getting into car w/ stool. Pt has met acute PT goals, will sign off with anticipation of pt discharging home later this morning. Frequency of Treatment Frequency Of Treatment Discharge Recommendations To Nursing Amount of Assist Needed 1 Person Assist Discharge Recommendations PT Discharge Recommendations Home with Assistance
--- NOTE | 2019-01-10 11:03 | CM.DPC ---
DCP Cont: Called Ashley with [facility] to get contact info for their [place] office. Informed Ashley that we have a new referral for them. Ashley advised she will pass along patient's info and we can send a fax to them with Demographics, Order for Home Health, Face to Face and Discharge Summary with medication list. She asked for us to fax all info to [phone]. Fax sent and confirmation received. Haylie Garnett, Care Machine Bander And Cellophaner Helper
--- NOTE | 2019-01-10 11:14 | OT.IP.TRT ---
Current Diagnoses Other forms of scoliosis, lumbar region (01/06/19) Spinal stenosis, lumbar region with neurogenic claudication (01/06/19) Other specified postprocedural states (01/06/19) Surgery Performed Operation Date: 01/06/19 10:15 Actual Procedures p L3-4 laminectomy, L4-5, L5-S1 redo laminectomies, L2-S1 anterior/ posterior instrumented fusion with bone graft - Nakul Earl MD Occupational Therapy Treatment Note M2 OT-IP Current Condition Start: 01/07/19 18:31 Freq: Status: Active Protocol: Document 01/07/19 14:45 [facility] (Rec: 01/07/19 18:51 [facility] [id number]) Occupational Therapy Current Condition Current Condition Evaluation Date 01/07/19 Treatment Diagnosis Lumbar stenosis Diagnosis Onset Date 01/06/19 Post Operative Precautions Lumbar Precautions Log Roll No Twisting Limit Bending Lifting Restriction of 10 lbs Gait Belt above Incisional Area Weight Bearing Status Weight Bearing Status Weight Bear as Tolerated M3 OT- IP Subjective and Pain Start: 01/07/19 18:31 Freq: Status: Active Protocol: Document 01/10/19 09:30 [facility] (Rec: 01/10/19 11:14 [facility] [id number]) OT- Subjective Occupational Therapy Visit Type Type Treatment Note Visit Start Time 08:50 Visit Stop Time 09:30 Total Visit Minutes 45 Notes Seen again to issue sock aid. Occupational Therapy Visit Comments Patient Comments Pt wanting to shower prior to discharge home. OT Pain Assessment Pain When Pain Assessed At Rest Pain Present Pain Present Denied Pain M4 OT- IP ADL's Start: 01/07/19 18:31 Freq: Status: Active Protocol: Document 01/10/19 09:30 [facility] (Rec: 01/10/19 11:14 [facility] [id number]) OT ADL-Grooming General Evaluation Grooming Ability Minimal Assistance Areas Needing Assistance Combing/Brushing Hair Comments OT Grooming Comments Mao for completeness to comb hair by her . OT ADL-Oral Care General Eval Oral Care Ability Independent OT ADL-Dressing General Eval Lower Body Dressing Ability Moderate Assistance Areas Needing Assistance Socks Shoes Comments OT Dressing Comments Assist for socks and shoes at this time. to assist. OT ADL-Toileting General Evaluation Toileting Ability Standby Assistance OT ADL-Bathing Bathing Type Bathing Type Shower General Evaluation Bathing Ability Minimal Assistance Areas Needing Assistance Wash/Dry Back Wash/Dry Lower Extremities Comments OT Bathing Comments Pt able to stand for most of shower but heavily relies on grab bars . Educated that shower chair can be beneficial in addition to long handled sponge, sock aid, and BSC to assist at home. M5 OT- IP IADL's Start: 01/07/19 18:31 Freq: Status: Active Protocol: Document 01/07/19 14:45 [facility] (Rec: 01/07/19 18:51 [facility] [id number]) OT-Instrumental Activities of Daily Living Meal Preparation Meal Preparation Comments to assist. Boilermaker Apprentice Boilermaker Apprentice Comments to assist. M6 OT- IP Functional Cognition Start: 01/07/19 18:31 Freq: Status: Active Protocol: Document 01/10/19 09:30 [facility] (Rec: 01/10/19 11:14 [facility] [id number]) Cognitive Factors Limiting Selfcare Function Cognitive Ability Level of Alertness Alert Patient Orientation Name Place Situation Attention Span Ability Capable of Focused Attention Capable of Sustained Attention Ability to Follow Commands Able to Follow Multi-Step Commands Memory Description No Deficits Noted Safety Awareness Decreased Ability to Apply Precautions Cognitive Comments Cognitive Assessment Comments Pt needing reminders to incorporate back precautions at times. Pt states will use cell phone to call her at night for use of bathroom. M7 OT- IP Mobility and Balance Start: 01/07/19 18:31 Freq: Status: Active Protocol: Document 01/10/19 09:30 [facility] (Rec: 01/10/19 11:14 [facility] [id number]) OT- Bed Mobility Assessment Rolling Type of Rolling Roll to Right Supine to Sit Supine to Sit Assist Standby Assistance OT-Transfer Assessment Sit to and From Stand Sit to and from Stand Standby Assistance Transfers Transfer Ability Standby Assistance Contact Guard Assistance Technique Transfer Destination Bed Car Shower Stall Devices Transfer Assistive Devices Gait Belt Front Wheeled Walker Comments Mobility Comments Pt mostly SBA, CGA for uneven terrain. OT- Balance Assessment Sitting Balance and Reactions Static Sitting Balance Ability Normal Dynamic Sitting Balance Ability Good Standing Balance and Reactions Static Standing Balance Ability Good Dynamic Standing Balance Ability Fair M8 OT- IP Objective Assessments Start: 01/07/19 18:31 Freq: Status: Active Protocol: Document 01/07/19 14:45 [facility] (Rec: 01/07/19 18:51 [facility] [id number]) OT Gross Range of Motion Upper Extremity Range of Motion Assessment Within Functional Limits OT Strength Upper Extremity Strength Assessment Within Functional Limits M9 OT- IP Assessment and Plan Start: 01/07/19 18:31 Freq: Status: Active Protocol: Document 01/10/19 09:30 [facility] (Rec: 01/10/19 11:14 [facility] [id number]) OT Summary Assessment and Plan Potential Rehabilitation Potential Good Analytic Complexity at Evaluation Low Summary OT Impairments Pain Functional Mobility Dressing Bathing Shower Transfers Progress Towards Goals Progressing Toward Goals Assessment Summary Pt looking to discharge today, to assist and pt to have home health. Pt not wanting to go to skilled rehab and deciding on going home now. Goals Days to Meet Goals 1 Frequency of Treatment Frequency Of Treatment Once a Day Discharge Recommendations OT Discharge Recommendations Home with Assistance Home Equipment Needs BSC, FWW, shower chair, sock aid
[2019-01-10] MEDS: ACETAMINOPHEN 325 MG TABLET 650 MG PO (11:40)
--- NOTE | 2019-01-10 14:34 | CM.DPC ---
DCP/continued: Reviewed chart. Received notification that patient cleared to d/c home today with HH. Order obtained by Dr. Earl for home health for PT/OT. F2F completed. ENGLISH DRAWER met with patient and spouse/Kirill re: home health. Patient and spouse in agreement and have no preference in agency as they live in [place], [place]. Patient has [employer] as primary and Medicare as secondary. ENGLISH DRAWER asked OMAR/Haylie to call agencies in the [place] area to check on whether or not they can accept case and have contract with insurance. Per Haylie, she spoke with [facility] and they do have contract. Therefore, referral and made to [facility] in [place]. Referral accepted by Ashley at [facility]. Provided patient and spouse with brochure to agency. All questions answered. RN updated. P: Home today with home health arranged through [facility]. KAZ Saenz
--- NOTE | 2019-01-13 12:43 | CM.DPNOTE ---
Received call from a nursing career counselor at [facility] [place] in [place]. She explained that Swathi and her had come to the ED d/t pt's N/V and constipation. This RN CM was attempting to explore DC options on Swathi's behalf. Swathi and her Kirill were reporting to this RN that Home health had been arranged upon DC from but they never saw anyone and they now feel Swathi needs SNF, she is not doing well at home. This DIRECTOR OF LABOR AND DELIVERY asked if nurse CM needed # for [facility] to f/u ? She had the number but did ask if pt had a qualifying inpt stay; according to the notes pt did have an inpt qualifying stay if Medicare was needed. This DIRECTOR OF LABOR AND DELIVERY encouraged this CM to look at pt's primary/secondary insurance. RN CM had already contacted [facility] per Consuelo's request. MIKE
== END 2019-01-10 11:45 | disposition home health service (06) | DRG 454 ==
PROVIDERS: Admitting Provider Orthopaedic Surgery; Visit Provider Orthopaedic Surgery
PROC: 0SG00A0 Fusion of Lumbar Vertebral Joint with Interbody Fusion Device, Anterior Approach, Anterior Column, Open Approach (ICD-10-PCS; CPT 22558; principal; 2019-01-06 10:15)
DX: M48.062 Spinal stenosis, lumbar region with neurogenic claudication (principal); G97.41 Accidental puncture or laceration of dura during a procedure; M41.86 Other forms of scoliosis, lumbar region; M48.07 Spinal stenosis, lumbosacral region; R11.0 Nausea; I10 Essential (primary) hypertension; Z96.643 Presence of artificial hip joint, bilateral; E07.9 Disorder of thyroid, unspecified
CPT/HCPCS: 36415; 72100; 76000; 80048; 85014; 85018; 94762; 97116; 97162; 97165; 97530; 97535; C1776; J0330; J0595; J0690; J1100; J1170; J2060; J2250; J2274; J2405; J2704; J3010; J3410